=== PATIENT | female | born 1970 | race American Indian/Alaskan Native ===

== ENCOUNTER 2016-05-06 11:22 | Emergency (ER) | payer OTHER ==
[2016-05-06 11:26] VITALS: BP 103/48; PULSE 86; RESP 16; TEMP 98; O2SAT 100
[2016-05-06 11:27] VITALS: BMI 35.2
--- NOTE | 2016-05-06 11:53 | ED PDOC ---
HPI: Wound Care - HPI Time Seen by Provider: 05/06/16 11:32 Chief Complaint (Nursing): Suture/Staple Removal Chief Complaint (Provider): suture removal History Per: Patient Additional Complaint(s): 46 year old here for suture removal placed 04/29 after dog bite she states she has not taken many of the antibiotics only took about 3-4 tabs. (-) fever, drainage, pain, bleeding Past Medical History Reviewed: Historical Data, Nursing Documentation, Vital Signs Vital Signs: Last Vital Signs Temp 98.0 F 05/06/16 11:25 Pulse 86 05/06/16 11:25 Resp 16 05/06/16 11:25 BP 103/48 L 05/06/16 11:25 Pulse Ox 100 05/06/16 11:25 - Medical History PMH: Arthritis (Degenerative arthritis), Diabetes, HTN, Hypercholesterolemia - Surgical History Surgical History: (x 1) - Family History Family History: States: Unknown Family Hx - Immunization History Hx Tetanus Toxoid Vaccination: No Hx Influenza Vaccination: No Hx Pneumococcal Vaccination: No - Home Medications Home Medications: Ambulatory Orders Medication Instructions Recorded Amoxicillin/Clavulanate [Augmentin 1 tab PO BID #14 tab 04/29/16 875 MG-125 MG] Htn Pill 1 tab PO BID 04/29/16 Ibuprofen [Motrin] 600 mg PO Q6 #20 tab 04/29/16 metFORMIN [glucOPHAGE] 1 tab PO BID 04/29/16 - Allergies Allergies/Adverse Reactions: Allergies Allergy/AdvReac Type Severity Reaction Status Date / Time No Known Allergies Allergy Verified 05/06/16 11:30 Review of Systems ROS Statement: Except As Marked, All Systems Reviewed And Found Negative Constitutional: Negative for: Fever Physical Exam - Reviewed Nursing Documentation Reviewed: Yes Vital Signs Reviewed: Yes (r) - Physical Exam Appears: Positive for: Well, No Acute Distress Extremity: Positive for: Normal ROM, Capillary Refill (normal ), Other ([address] on the right lateral/posterior thigh, no bleeding, no drainage , no tenderness, no fluctuance, no erythema, appears well ). Negative for: Tenderness - ECG O2 Sat by Pulse Oximetry: 100 Pulse Ox Interpretation: Normal Medical Decision Making Medical Decision Makin46 year old here for suture removal placed 04/29 after dog bite - wound appears well with no signs of infection - wound appears closed - cleansed with betadine and 2 sutures easily removed. - 2 steri strips placed to continue healing - dressing placed the need for taking abx discussed as she is a diabetic, return information discussed. Disposition - Clinical Impression Clinical Impression: Visit for suture removal - Patient ED Disposition Is Patient to be Admitted: No Counseled Patient/Family Regarding: Studies Performed, Diagnosis, Need For Followup - Disposition Disposition: Routine/Home Disposition Time: 11:51 Condition: STABLE Additional Instructions: keep clean and dry take the antibiotics as prescribed return for pain, bleeding, fevers, drainage or any new concerns Instructions: Stitches Removal (ED), Steristrips (ED) Print Language: SYRIAC
== END 2016-05-06 12:06 | disposition home or self-care (01) ==
LOC: H.ER 11:22
DX: Z48.02 Encounter for removal of sutures (principal); E11.9 Type 2 diabetes mellitus without complications; Z79.84 Long term (current) use of oral hypoglycemic drugs; E78.00 Pure hypercholesterolemia, unspecified; I10 Essential (primary) hypertension

== ENCOUNTER 2016-07-28 14:35 | Emergency (ER) | payer OTHER ==
[2016-07-28 14:36] VITALS: BMI 35.2
[2016-07-28 14:37] VITALS: BP 125/78; PULSE 86; RESP 18; TEMP 99.2; O2SAT 100
[2016-07-28 15:43] LABS: BASO % 0.3 % (0.0-2.0); EOS # 0.1 K/uL (0.0-0.7); EOS % 0.6 % (0.0-4.0); HEMATOCRIT 39.5 % (34.0-47.0); LYMPH # 3.8 K/uL (1.0-4.3); LYMPH % 29.9 % (20.0-40.0); MEAN CORPUSCULAR HEMOGLOBIN 28.9 pg (27.0-31.0); MEAN CORPUSCULAR HGB CONC 32.2 g/dL (33.0-37.0); MONO # 1.6 K/uL (0.0-0.8); MONO % 12.7 % (0.0-10.0); NEUT # 7.1 K/uL (1.8-7.0); NEUT % 56.5 % (50.0-75.0); NRBC % 0.1 % (0.0-0.0); RED CELL DISTRIBUTION WIDTH 14.4 % (11.5-14.5); WHITE BLOOD COUNT 12.6 K/uL (4.8-10.8)
[2016-07-28 15:52] LABS: MEAN CELL VOLUME 89.7 fl (81.0-99.0)
[2016-07-28 15:56] LABS: ALB/GLOB RATIO 1.2 (1.0-2.1); ALKALINE PHOSPHATASE 77 U/L (38-126); ALT/SGPT 31 U/L (9-52); AST/SGOT 24 U/L (14-36); BILIRUBIN,TOTAL 0.4 mg/dl (0.2-1.3); BLOOD UREA NITROGEN 15 mg/dl (7-17); CARBON DIOXIDE 28 mmol/L (22-30); CHLORIDE 97 mmol/L (98-107); GFR AFRICAN-AMERICAN > 60; GLUCOSE,RANDOM 63 mg/dL (65-105); POTASSIUM 3.4 MMOL/L (3.6-5.0); SODIUM 137 mmol/l (132-148); TOTAL PROTEIN 8.3 G/DL (6.3-8.2)
[2016-07-28] MEDS ORDERED: Potassium Chloride 20 mEq ER Tab PO STA (16:00)
--- NOTE | 2016-07-28 16:04 | ED PDOC ---
Lower Extremity Pain/Injury Time Seen by Provider: 07/28/16 15:07 Chief Complaint (Nursing): Weakness/Neurological Deficit Chief Complaint (Provider): left foot pain History Per: Patient History/Exam Limitations: no limitations Onset/Duration Of Symptoms: Days (x 1.5 weeks ) Current Symptoms Are (Timing): Still Present Additional Complaint(s): Mariah Espinal is a 46 year old female, with a previous medical history of arthritis, diabetes and hypertension, who presents to the ED via EMS with complaints of atraumatic left foot pain associated with weakness ongoing for the past week and a half. Patient reports when EMS arrived her glucose level was 65. Patient denies any calf pain, shortness of breath, numbness, tingling, swelling or chest pain. PMD: none provided Past Medical History Reviewed: Historical Data, Nursing Documentation, Vital Signs Vital Signs: Last Vital Signs Temp 99.2 F 07/28/16 14:36 Pulse 86 07/28/16 14:36 Resp 18 07/28/16 14:36 BP 125/78 07/28/16 14:36 Pulse Ox 100 07/28/16 14:36 - Medical History PMH: Arthritis (Degenerative arthritis), Diabetes, HTN, Hypercholesterolemia - Surgical History Surgical History: (x 1) - Family History Family History: States: Unknown Family Hx - Immunization History Hx Tetanus Toxoid Vaccination: No Hx Influenza Vaccination: No Hx Pneumococcal Vaccination: No - Home Medications Home Medications: Ambulatory Orders Medication Instructions Recorded Amoxicillin/Clavulanate [Augmentin 1 tab PO BID #14 tab 04/29/16 875 MG-125 MG] Htn Pill 1 tab PO BID 04/29/16 Ibuprofen [Motrin] 600 mg PO Q6 #20 tab 04/29/16 metFORMIN [glucOPHAGE] 1 tab PO BID 04/29/16 Naproxen [Naprosyn] 500 mg PO BID PRN #15 tablet 07/28/16 Nitrofurantoin Macrocrystals 100 mg PO BID #13 cap 07/28/16 [Macrobid] - Allergies Allergies/Adverse Reactions: Allergies Allergy/AdvReac Type Severity Reaction Status Date / Time No Known Allergies Allergy Verified 07/28/16 14:49 Review of Systems ROS Statement: Except As Marked, All Systems Reviewed And Found Negative Cardiovascular: Negative for: Chest Pain Respiratory: Negative for: Shortness of Breath Musculoskeletal: Positive for: Foot Pain (left). Negative for: Leg Pain (calf pain ) Neurological: Positive for: Weakness (left foot). Negative for: Numbness Physical Exam - Reviewed Nursing Documentation Reviewed: Yes Vital Signs Reviewed: Yes - Physical Exam Appears: Positive for: Well, Non-toxic, No Acute Distress Head Exam: Positive for: ATRAUMATIC, NORMAL INSPECTION, NORMOCEPHALIC Cardiovascular/Chest: Positive for: Regular Rate, Rhythm Respiratory: Positive for: CNT, Normal Breath Sounds Pulses-Dorsalis Pedis (L): 2+ Extremity: Positive for: Normal ROM, Tenderness (anterior surface of the left foot), Capillary Refill (< 2 seconds). Negative for: Pedal Edema, Calf Tenderness, Deformity, Swelling Neurologic/Psych: Positive for: Alert, Oriented - Laboratory Results Result Diagrams: 07/28/16 15:32 07/28/16 15:32 - ECG O2 Sat by Pulse Oximetry: 100 (RA) Pulse Ox Interpretation: Normal Medical Decision Making Medical Decision Making: Initial Impression: Foot pain Initial Plan: * EKG * labs * urine * urine dipstick * potassium chloride 20 meq * accucheck * urinalysis * reevaluation Scribe Attestation: Documented by Asha Marie, acting as a scribe for Asha Solano MD. Provider Scribe Attestation: All medical record entries made by the Scribe were at my direction and personally dictated by me. I have reviewed the chart and agree that the record accurately reflects my personal performance of the history, physical exam, medical decision making, and the department course for this patient. I have also personally directed, reviewed, and agree with the discharge instructions and disposition. Disposition - Clinical Impression Clinical Impression: UTI (urinary tract infection), Foot pain - Disposition Disposition: Routine/Home Disposition Time: 17:48 Condition: STABLE Additional Instructions: FOLLOW-UP WITH YOUR PMD WITHIN 2 DAYS FOR REEVALUATION. Prescriptions: Naproxen [Naprosyn] 500 mg PO BID PRN #15 tablet PRN Reason: Pain, Moderate (4-7) Nitrofurantoin Macrocrystals [Macrobid] 100 mg PO BID #13 cap Instructions: Urinary Tract Infection in Women (ED), Arthralgia (ED)
[2016-07-28 16:26] LABS: RBC URINE 19 /hpf (0-3); URINE BACTERIA OCC (<OCC); URINE BILIRUBIN NEGATIVE (NEGATIVE); URINE COLOR YELLOW (YELLOW); URINE GLUCOSE (UA) NEG (Normal); URINE KETONE NEGATIVE (NEGATIVE); URINE LEUKOCYTE ESTERASE MOD Leu/uL (Negative); URINE PROTEIN 30 mg/dL (NEGATIVE); URINE UROBILINOGEN 0.2-1.0 mg/dL (0.2-1.0); WBC URINE 50 /hpf (0-5)
[2016-07-28 16:27] LABS: URINE BLOOD SMALL (NEGATIVE)
--- NOTE | 2016-07-28 16:48 | RAD ---
PROCEDURE: Left Foot Radiographs. HISTORY: Anterior foot pain COMPARISON: None. FINDINGS: BONES: Normal. No fracture. JOINTS: Normal. SOFT TISSUES: Normal. OTHER FINDINGS: Heel spur. Pes planus.. IMPRESSION: Heel spur. Pes planus..
[2016-07-28] MEDS ORDERED: Potassium Chloride 20 mEq ER Tab PO ONE (17:50)
--- NOTE | 2016-07-29 14:50 | CARD ---
APPROVED REPORT EKG Measurement Heart [id number] <Conclusion> Normal sinus rhythm Cannot rule out Anterior infarct, age undetermined Abnormal ECG
== END 2016-07-28 18:04 | disposition home or self-care (01) ==
LOC: H.ER 14:35
DX: N39.0 Urinary tract infection, site not specified (principal); M79.672 Pain in left foot

== ENCOUNTER 2016-09-27 11:49 | Emergency (ER) | payer OTHER ==
[2016-09-27 11:49] VITALS: BMI 35.2
[2016-09-27 11:54] VITALS: BP 131/83; PULSE 83; RESP 18; TEMP 98.7; O2SAT 99
--- NOTE | 2016-09-27 12:59 | ED PDOC ---
Lower Extremity Pain/Injury Time Seen by Provider: 09/27/16 12:13 Chief Complaint (Nursing): Lower Extremity Problem/Injury Chief Complaint (Provider): Lower Extremity Injury History Per: Patient History/Exam Limitations: no limitations Onset/Duration Of Symptoms: Hrs (x2 [employer]IDENT[employer] DIRECT[employer]) Current Symptoms Are (Timing): Still Present Additional Complaint(s): Mariah Espinal is a 46 year old female, with a past medical history of diabetes , and hypertension, who presents to the emergency department complaining left knee pain onset since 2 hours prior to arrival. Patient reports she slip and fell on her knee due to a water spill near a water fountain. She denies any further medical complaints. PMD: Brenda Sorenson - Knee Description Of Injury: Fell Past Medical History Reviewed: Historical Data, Nursing Documentation, Vital Signs Vital Signs: Last Vital Signs Temp 98.7 F 09/27/16 11:53 Pulse 83 09/27/16 11:53 Resp 18 09/27/16 11:53 BP 131/83 09/27/16 11:53 Pulse Ox 99 09/27/16 11:53 - Medical History PMH: Arthritis (Degenerative arthritis), Diabetes, HTN, Hypercholesterolemia - Surgical History Surgical History: (x 1) - Family History Family History: States: Unknown Family Hx - Immunization History Hx Tetanus Toxoid Vaccination: No Hx Influenza Vaccination: No Hx Pneumococcal Vaccination: No - Home Medications Home Medications: Ambulatory Orders Medication Instructions Recorded Amoxicillin/Clavulanate [Augmentin 1 tab PO BID #14 tab 04/29/16 875 MG-125 MG] Htn Pill 1 tab PO BID 04/29/16 Ibuprofen [Motrin] 600 mg PO Q6 #20 tab 04/29/16 metFORMIN [glucOPHAGE] 1 tab PO BID 04/29/16 Naproxen [Naprosyn] 500 mg PO BID PRN #15 tablet 07/28/16 Nitrofurantoin Macrocrystals 100 mg PO BID #13 cap 07/28/16 [Macrobid] Naproxen 500 mg PO Q12H PRN #20 ect 09/27/16 - Allergies Allergies/Adverse Reactions: Allergies Allergy/AdvReac Type Severity Reaction Status Date / Time No Known Allergies Allergy Verified 07/28/16 14:49 Review of Systems ROS Statement: Except As Marked, All Systems Reviewed And Found Negative Musculoskeletal: Positive for: Leg Pain (Left knee) Physical Exam - Reviewed Nursing Documentation Reviewed: Yes Vital Signs Reviewed: Yes - Physical Exam Appears: Positive for: Well, Non-toxic, No Acute Distress Head Exam: Positive for: ATRAUMATIC, NORMAL INSPECTION, NORMOCEPHALIC Skin: Positive for: Normal Color (No ecchymosis, no abrasion ), Warm, Dry Eye Exam: Positive for: Normal appearance ENT: Positive for: Normal ENT Inspection Neck: Positive for: Normal Respiratory: Negative for: Accessory Muscle Use, Respiratory Distress Pulses-Dorsalis Pedis (L): 2+ Pulses-Dorsalis Pedis (R): 2+ Pulses-Post. Tibialis (L): 2+ Pulses-Post. Tibialis (R): 2+ Extremity: Positive for: Normal ROM, Tenderness (Left patella). Negative for: Deformity, Swelling Neurologic/Psych: Positive for: Alert, Oriented - ECG O2 Sat by Pulse Oximetry: 99 (RA) Pulse Ox Interpretation: Normal Medical Decision Making Medical Decision Making: Initial Impression: Lower extremity injury Initial Plan: --Knee 3 views LT [RAD] --Knee 3 views RT [RAD] --Motrin Tab 600 mg PO --reevaluation Time Upon provider reevaluation patient is feeling better, is medically stable, and requires no further treatment in the ED at this time. Patient will be discharged with Rx for . There is agreement to discharge plan. Return if symptoms persist or worsen. Scribe Attestation: Documented by Gabriel Bolanos, acting as a scribe for Chey STREET. Provider Scribe Attestation: All medical record entries made by the Scribe were at my direction and personally dictated by me. I have reviewed the chart and agree that the record accurately reflects my personal performance of the history, physical exam, medical decision making, and the department course for this patient. I have also personally directed, reviewed, and agree with the discharge instructions and disposition. Disposition - Clinical Impression Clinical Impression: Knee injury - Disposition Referrals: Jerson Bowles III, MD [Staff Provider] - Disposition: Routine/Home Disposition Time: 13:05 Condition: GOOD Prescriptions: Naproxen 500 mg PO Q12H PRN #20 ect PRN Reason: Pain, Severe (8-10) Instructions: Knee Pain (ED) Forms: [employer] (Sinhala)
--- NOTE | 2016-09-27 15:12 | RAD ---
PROCEDURE: Left Knee Radiographs. HISTORY: Pain. COMPARISON: Prior left knee radiographs 10/03/2011. FINDINGS: BONES: Normal. No fracture or suspicious lytic or blastic change. . JOINTS: Limited medial femorotibial compartment narrowing is appreciated with the joint spaces otherwise unremarkable. JOINT EFFUSION: None. OTHER FINDINGS: None. IMPRESSION: Limited medial femorotibial compartment degenerative joint disease. No acute fracture or dislocation.
== END 2016-09-27 13:29 | disposition home or self-care (01) ==
LOC: H.ER 11:49
DX: S89.92XA Unspecified injury of left lower leg, initial encounter (principal); W19.XXXA Unspecified fall, initial encounter; Y92.89 Other specified places as the place of occurrence of the external cause

== ENCOUNTER 2016-11-16 23:10 | Emergency (ER) | payer OTHER ==
[2016-11-16 23:11] VITALS: BMI 35.2
[2016-11-16 23:16] VITALS: BP 119/70; PULSE 103; RESP 18; TEMP 98.7; O2SAT 100
--- NOTE | 2016-11-16 23:56 | ED PDOC ---
HPI: General Adult Time Seen by Provider: 11/16/16 23:20 Chief Complaint (Nursing): Upper Extremity Problem/Injury Chief Complaint (Provider): Dizziness History Per: Patient History/Exam Limitations: no limitations Onset/Duration Of Symptoms: Hrs (x 5) Current Symptoms Are (Timing): Still Present Additional Complaint(s): 46 y/o female with a history of diabetes, hypertension, and asthma, presents to the ED after having a dizzy spell at work accompanied by right shoulder pain for the past 5 hours. Patient denies loss of consciousness, and took no medication prior to arrival. PMD: Dr. Sorenson Past Medical History Reviewed: Historical Data, Nursing Documentation, Vital Signs Vital Signs: Last Vital Signs Temp 98.7 F 11/16/16 23:12 Pulse 103 H 11/16/16 23:12 Resp 18 11/16/16 23:12 BP 119/70 11/16/16 23:12 Pulse Ox 100 11/17/16 00:36 - Medical History PMH: Arthritis (Degenerative arthritis), Asthma, Diabetes, HTN, Hypercholesterolemia - Surgical History Surgical History: (x 1) - Family History Family History: States: Unknown Family Hx - Social History Current smoker - smoking cessation education provided: No Ex-Smoker (has not smoked in the last 12 months): No Alcohol: None Drugs: Denies - Immunization History Hx Tetanus Toxoid Vaccination: No Hx Influenza Vaccination: No Hx Pneumococcal Vaccination: No - Home Medications Home Medications: Ambulatory Orders Medication Instructions Recorded Amoxicillin/Clavulanate [Augmentin 1 tab PO BID #14 tab 04/29/16 875 MG-125 MG] Htn Pill 1 tab PO BID 04/29/16 Ibuprofen [Motrin] 600 mg PO Q6 #20 tab 04/29/16 metFORMIN [glucOPHAGE] 1 tab PO BID 04/29/16 Naproxen [Naprosyn] 500 mg PO BID PRN #15 tablet 07/28/16 Nitrofurantoin Macrocrystals 100 mg PO BID #13 cap 07/28/16 [Macrobid] Naproxen 500 mg PO Q12H PRN #20 ect 09/27/16 Ibuprofen [Motrin Tab] 600 mg PO Q6 PRN #12 tab 11/17/16 - Allergies Allergies/Adverse Reactions: Allergies Allergy/AdvReac Type Severity Reaction Status Date / Time No Known Allergies Allergy Verified 07/28/16 14:49 Review of Systems ROS Statement: Except As Marked, All Systems Reviewed And Found Negative Musculoskeletal: Positive for: Shoulder Pain (right) Neurological: Positive for: Dizziness Physical Exam - Reviewed Nursing Documentation Reviewed: Yes Vital Signs Reviewed: Yes - Physical Exam Appears: Positive for: Well, Non-toxic, No Acute Distress Head Exam: Positive for: ATRAUMATIC, NORMAL INSPECTION, NORMOCEPHALIC Skin: Positive for: Normal Color, Warm, Dry Eye Exam: Positive for: EOMI, Normal appearance, PERRL ENT: Positive for: Normal ENT Inspection Neck: Positive for: Normal, Painless ROM, Supple Cardiovascular/Chest: Positive for: Regular Rate, Rhythm. Negative for: Murmur Respiratory: Positive for: Normal Breath Sounds. Negative for: Wheezing, Respiratory Distress Gastrointestinal/Abdominal: Positive for: Normal Exam, Bowel Sounds, Soft. Negative for: Tenderness Extremity: Positive for: Normal ROM (pain with right upper extremity extension to 90 degrees), Tenderness (point tenderness over right scapular surface). Negative for: Deformity Neurologic/Psych: Positive for: Alert, Oriented - ECG O2 Sat by Pulse Oximetry: 100 (RA) Pulse Ox Interpretation: Normal Medical Decision Making Medical Decision Making: Time: 23:37 Initial Impression: 46 y/o female with shoulder pain and dizzy spell Initial Plan: --EKG --XR Shoulder --Toradol --Accucheck Time: 23:40 Clinical Impression: Shoulder strain and dizzy spell --XR normal --Patient is medically stable for discharge. Scribe Attestation: Documented by Danny Weiss, acting as a scribe for Dr. Florian Ceballos MD. Provider Scribe Attestation: All medical record entries made by the Scribe were at my direction and personally dictated by me. I have reviewed the chart and agree that the record accurately reflects my personal performance of the history, physical exam, medical decision making, and the department course for this patient. I have also personally directed, reviewed, and agree with the discharge instructions and disposition. Disposition - Clinical Impression Clinical Impression: Right shoulder strain, Dizziness - Patient ED Disposition Is Patient to be Admitted: No Counseled Patient/Family Regarding: Studies Performed, Diagnosis - Disposition Disposition: Routine/Home Disposition Time: 23:40 Condition: STABLE Prescriptions: Ibuprofen [Motrin Tab] 600 mg PO Q6 PRN #12 tab PRN Reason: shoulder pain Instructions: Shoulder Sprain (ED), Dizziness (ED) Forms: [employer] (Korean), [facility] ED School/Work Excuse - POA Present On Arrival: None
--- NOTE | 2016-11-17 11:44 | RAD ---
PROCEDURE: Radiographs of the Right Shoulder HISTORY: right shoulder COMPARISON: Right shoulder radiographs 02/21/2015. FINDINGS: BONES: Normal. No fracture. JOINTS: Normal. Glenohumeral and acromioclavicular joints preserved. No osteoarthritis. SOFT TISSUES: Normal. OTHER FINDINGS: None. IMPRESSION: Normal radiographs of the right shoulder. No significant interval change 02/21/2015.
--- NOTE | 2016-11-17 12:03 | CARD ---
APPROVED REPORT EKG Measurement Heart [id number] <Conclusion> Normal sinus rhythm with sinus arrhythmia Normal ECG
== END 2016-11-17 00:42 | disposition home or self-care (01) ==
LOC: H.ER 23:10
DX: M25.511 Pain in right shoulder (principal); E11.9 Type 2 diabetes mellitus without complications; I10 Essential (primary) hypertension; J45.909 Unspecified asthma, uncomplicated
CPT/HCPCS: 73030; 81025; 93005; 96372; 99282; J1885

== ENCOUNTER 2016-12-09 10:42 | Emergency (ER) | payer OTHER ==
[2016-12-09 10:42] VITALS: BMI 35.2
[2016-12-09 10:55] VITALS: O2SAT 98
--- NOTE | 2016-12-09 11:03 | ED PDOC ---
HPI: Dental Pain/Injury Time Seen by Provider: 12/09/16 10:50 Chief Complaint (Nursing): Dental Pain Chief Complaint (Provider): Dental Pain History Per: Patient History/Exam Limitations: no limitations Onset/Duration Of Symptoms: Days (x3 days) Current Symptoms Are (Timing): Still Present Additional Complaint(s): 46 y.o female presents to the emergency department with a complaint of an abscess in the mouth with pain to the left lower tooth and gums x3 days. States tooth is ready to come out and she cannot eat from that side but is able to swallow. Reports taking Motrin around 9:45 this morning. Patient called dentist but was unable to schedule an appointment. Denies nausea, vomiting, diarrhea, or experiencing tooth abscess in the past. No weakness, sore throat, neck pain , fever. No numbness, tingles, headache. PMD: Dr. Brenda Sorenson MD Past Medical History Reviewed: Historical Data, Nursing Documentation, Vital Signs Vital Signs: Last Vital Signs Temp 98 F 12/09/16 10:50 Pulse 89 12/09/16 10:50 Resp 18 12/09/16 10:50 BP 136/80 12/09/16 10:50 Pulse Ox 98 12/09/16 10:50 - Medical History PMH: Arthritis (Degenerative arthritis), Asthma, Diabetes, HTN, Hypercholesterolemia - Surgical History Surgical History: (x 1) - Family History Family History: States: Unknown Family Hx - Social History Current smoker - smoking cessation education provided: No Alcohol: None Drugs: Denies - Immunization History Hx Tetanus Toxoid Vaccination: No Hx Influenza Vaccination: No Hx Pneumococcal Vaccination: No - Home Medications Home Medications: Ambulatory Orders Medication Instructions Recorded Amoxicillin/Clavulanate [Augmentin 1 tab PO BID #14 tab 04/29/16 875 MG-125 MG] Htn Pill 1 tab PO BID 04/29/16 Ibuprofen [Motrin] 600 mg PO Q6 #20 tab 04/29/16 metFORMIN [glucOPHAGE] 1 tab PO BID 04/29/16 Naproxen [Naprosyn] 500 mg PO BID PRN #15 tablet 07/28/16 Nitrofurantoin Macrocrystals 100 mg PO BID #13 cap 07/28/16 [Macrobid] Naproxen 500 mg PO Q12H PRN #20 ect 09/27/16 Ibuprofen [Motrin Tab] 600 mg PO Q6 PRN #12 tab 11/17/16 Clindamycin [Cleocin] 300 mg PO QID 7 Days cap 12/09/16 Ibuprofen [Motrin] 600 mg PO TID 7 Days tab 12/09/16 - Allergies Allergies/Adverse Reactions: Allergies Allergy/AdvReac Type Severity Reaction Status Date / Time No Known Allergies Allergy Verified 12/09/16 10:50 Review of Systems Constitutional: Negative for: Weakness ENT: Positive for: Other (Lower left tooth and gum pain). Negative for: Nose Congestion, Mouth Swelling, Throat Pain Cardiovascular: Negative for: Chest Pain Respiratory: Negative for: Cough, Shortness of Breath Gastrointestinal: Negative for: Nausea, Vomiting, Diarrhea Musculoskeletal: Negative for: Neck Pain Neurological: Negative for: Weakness Physical Exam - Reviewed Nursing Documentation Reviewed: Yes Vital Signs Reviewed: Yes - Physical Exam Appears: Positive for: Non-toxic, No Acute Distress Head Exam: Positive for: ATRAUMATIC, NORMAL INSPECTION, NORMOCEPHALIC Skin: Positive for: Normal Color, Warm, Dry ENT: Positive for: Other (left lower incisor loose and tender; no erythema, dc, fluctuance around tooth/gum/lip.; mandible and face with no tenderness or swelling). Negative for: Normal ENT Inspection (No abscess noted, erythema, or fluctuance. No swelling to the lip or jaw. ), Nasal Congestion, Pharyngeal Erythema, Tonsillar Exudate Neck: Positive for: Normal, Painless ROM, Supple Cardiovascular/Chest: Positive for: Regular Rate, Rhythm. Negative for: Murmur Respiratory: Positive for: Normal Breath Sounds. Negative for: Accessory Muscle Use, Respiratory Distress Back: Positive for: Normal Inspection. Negative for: L CVA Tenderness, R CVA Tenderness Neurologic/Psych: Positive for: Alert, Oriented (x3) - ECG O2 Sat by Pulse Oximetry: 98 (RA) Pulse Ox Interpretation: Normal - Progress ED Course And Treament: 1122: Stable. AAOx3. Pt. will fu with pcp and dentist. She has her own dentist. Medical Decision Making Medical Decision Making: Time: 1058 Initial Impression: Lower left dental pain Initial Plan: --Tylenol 975 mg PO --Cleocin 300 mg PO --Reevaluation Time: 1110 Patient is medically stable, and requires no further treatment in the ED at this time. Patient will be discharged home with Rx for Cleocin 300 mg and Motrin 600 mg. Counseling was provided and all questions were answered regarding diagnosis and need for follow up with referred clinic. There is agreement to discharge plan. Return if symptoms persist or worsen. Clinical Impression: Dental Caries Scribe Attestation: Documented by Leola Joyce, acting as a scribe for Nikolas Abreu MD. Provider Scribe Attestation: All medical record entries made by the Scribe were at my direction and personally dictated by me. I have reviewed the chart and agree that the record accurately reflects my personal performance of the history, physical exam, medical decision making, and the department course for this patient. I have also personally directed, reviewed, and agree with the discharge instructions and disposition. Disposition - Clinical Impression Clinical Impression: Dental caries - Patient ED Disposition Is Patient to be Admitted: No Counseled Patient/Family Regarding: Diagnosis, Need For Followup, Rx Given - Disposition Referrals: [facility] [Outside] - 12/10/16 Disposition: Routine/Home Disposition Time: 11:10 Condition: STABLE Additional Instructions: Return if not better in 3 days. See your dentist without fail. 1. [address] - [address] Clinic Full Details We are proud to be one of the largest providers of high quality healthcare in the [facility] area. We offer a full range of medical and dental services for children, adults, and seniors including in-house specialists at our centersThis clinic is based on Sliding scale fees which are variable [facility] Clinic Full Details 2. [facility] [address], [place] - [address] Clinic Full Details [facility]. Fees: Medicaid, Self-PayWe provide dental services for children, adults and SeniorsThis clinic is based on Sliding scale fees which are variable prices for products, services, or taxes based on a customer's ability to pay. Such fees are thereby reduced for those who have [facility] Clinic Full Details 3. [facility] [address] [place] [phone] Clinic Full Details Services:Medical and DentalHours:Mon & Wed: 9AM 7PMTue & Marie-Sat: 9AM 5PM Clinic Full Details 4. [facility], Division of Oral Medicine (DS) [facility], Division of Oral Medicine (DS) [address] [place] [phone] Clinic Full Details [facility] Provides general dental care for people who cannot be treated in a normal dental office, including disabled, mentally retarded and frightened. When needed, treatment can be done under general anesthesia in [facility]. All treatment is by graduate dentists.Maximino email website Clinic Full Details Prescriptions: Clindamycin [Cleocin] 300 mg PO QID 7 Days cap Ibuprofen [Motrin] 600 mg PO TID 7 Days tab Instructions: Dental Caries (ED) Forms: [employer] (Guinean)
[2016-12-09 11:34] VITALS: BP 126/78; PULSE 78; RESP 19; TEMP 97.5
== END 2016-12-09 11:45 | disposition home or self-care (01) ==
LOC: H.ER 10:42
DX: K02.9 Dental caries, unspecified (principal)

== ENCOUNTER 2017-01-16 08:23 | Emergency (ER) | payer OTHER ==
[2017-01-16 08:23] VITALS: BMI 35.2
[2017-01-16 08:40] VITALS: RESP 22
--- NOTE | 2017-01-16 10:45 | ED PDOC ---
HPI: Back Time Seen by Provider: 01/16/17 09:12 Chief Complaint (Nursing): Back Pain Chief Complaint (Provider): left flank and hip pain History Per: Patient History/Exam Limitations: no limitations Onset/Duration Of Symptoms: Hrs (3), Sudden Onset Current Symptoms Are (Timing): Still Present Quality Of Discomfort: Sharp Severity: Moderate Previous Symptoms: None, Back Pain Associated Symptoms: None Exacerbating Factor(s): Turning, Movement, Sitting Additional Complaint(s): 47yo female hx DM and HTN presents c/o left flank and hip pain since this morning, worse w movement. Denies prior history of similar pain, denies dysuria , fever, vomiting or diarrhea. Past Medical History Reviewed: Historical Data, Nursing Documentation, Vital Signs Vital Signs: Last Vital Signs Temp 97.9 F 01/16/17 08:39 Pulse 105 H 01/16/17 08:39 Resp 22 01/16/17 08:39 BP 132/77 01/16/17 08:39 Pulse Ox 97 01/16/17 08:39 - Medical History PMH: Arthritis (Degenerative arthritis), Asthma, Diabetes, HTN, Hypercholesterolemia - Surgical History Surgical History: (x 1) - Family History Family History: States: Unknown Family Hx - Living Arrangements Living Arrangements: With Family - Immunization History Hx Tetanus Toxoid Vaccination: No Hx Influenza Vaccination: No Hx Pneumococcal Vaccination: No - Home Medications Home Medications: Ambulatory Orders Medication Instructions Recorded Amoxicillin/Clavulanate [Augmentin 1 tab PO BID #14 tab 04/29/16 875 MG-125 MG] Htn Pill 1 tab PO BID 04/29/16 Ibuprofen [Motrin] 600 mg PO Q6 #20 tab 04/29/16 metFORMIN [glucOPHAGE] 1 tab PO BID 04/29/16 Naproxen [Naprosyn] 500 mg PO BID PRN #15 tablet 07/28/16 Nitrofurantoin Macrocrystals 100 mg PO BID #13 cap 07/28/16 [Macrobid] Naproxen 500 mg PO Q12H PRN #20 ect 09/27/16 Ibuprofen [Motrin Tab] 600 mg PO Q6 PRN #12 tab 11/17/16 Clindamycin [Cleocin] 300 mg PO QID 7 Days cap 12/09/16 Ibuprofen [Motrin] 600 mg PO TID 7 Days tab 12/09/16 Ciprofloxacin [Cipro] 500 mg PO BID #14 tab 01/16/17 Ibuprofen [Motrin Tab] 600 mg PO Q6 PRN #15 tab 01/16/17 - Allergies Allergies/Adverse Reactions: Allergies Allergy/AdvReac Type Severity Reaction Status Date / Time No Known Allergies Allergy Verified 12/09/16 10:50 Review of Systems ROS Statement: Except As Marked, All Systems Reviewed And Found Negative Constitutional: Negative for: Fever, Chills Cardiovascular: Negative for: Chest Pain, Palpitations Respiratory: Negative for: Cough, Shortness of Breath Gastrointestinal: Positive for: Abdominal Pain, Other (L flank pain). Negative for: Nausea, Vomiting Genitourinary Female: Negative for: Dysuria, Hematuria Musculoskeletal: Positive for: Back Pain. Negative for: Neck Pain Skin: Negative for: Rash, Lesions, Jaundice Neurological: Negative for: Weakness, Numbness Psych: Negative for: Anxiety Physical Exam - Reviewed Nursing Documentation Reviewed: Yes Vital Signs Reviewed: Yes - Physical Exam Appears: Positive for: Well, Non-toxic, No Acute Distress Head Exam: Positive for: ATRAUMATIC, NORMAL INSPECTION, NORMOCEPHALIC Skin: Positive for: Normal Color, Warm, DRY Eye Exam: Positive for: EOMI, Normal appearance, PERRL ENT: Positive for: Normal ENT Inspection Neck: Positive for: Normal, Painless ROM Cardiovascular/Chest: Positive for: Regular Rate, Rhythm Respiratory: Positive for: CNT, Normal Breath Sounds Gastrointestinal/Abdominal: Positive for: Bowel Sounds, Soft. Negative for: Tenderness, Guarding Back: Positive for: L CVA Tenderness Extremity: Positive for: Tenderness (mild L hip tenderness). Negative for: Swelling Neurologic/Psych: Positive for: Alert, Oriented. Negative for: Motor/Sensory Deficits - Laboratory Results Result Diagrams: 01/16/17 11:55 01/16/17 11:55 - ECG O2 Sat by Pulse Oximetry: 97 Medical Decision Making Medical Decision Making: workup for back/flank pain initiated Bloodwork, UA and possible imaging if not improved labs reveal evidence of UTI CT imaging performed r/o pyelo or bony abnormality L hip. CT report reviewed and patient instructed on findings. DC from ED w Abx and followup PMD. Needs endocrine/PMD followup for adrenal imaging findings. Explained. Disposition - Clinical Impression Clinical Impression: UTI (urinary tract infection), Hip pain - Patient ED Disposition Is Patient to be Admitted: No Counseled Patient/Family Regarding: Studies Performed, Diagnosis, Need For Followup, Rx Given - Disposition Disposition: Routine/Home Disposition Time: 13:01 Condition: STABLE Additional Instructions: Take antibiotic and pain medication as directed. Return to ER for any worse or new symptoms/. Prescriptions: Ciprofloxacin [Cipro] 500 mg PO BID #14 tab Ibuprofen [Motrin Tab] 600 mg PO Q6 PRN #15 tab PRN Reason: Pain, Moderate (4-7) Instructions: Urinary Tract Infection in Women (DC), Hip Pain (ED) Forms: [employer] (Niuean)
[2017-01-16 10:50] LABS: RBC URINE 15 /hpf (0-3); URINE BACTERIA OCC (<OCC); URINE BILIRUBIN NEGATIVE (NEGATIVE); URINE BLOOD SMALL (NEGATIVE); URINE COLOR YELLOW (YELLOW); URINE GLUCOSE (UA) NEG (Normal); URINE KETONE NEGATIVE (NEGATIVE); URINE LEUKOCYTE ESTERASE LARGE Leu/uL (Negative); URINE PROTEIN 100 mg/dL (NEGATIVE); URINE UROBILINOGEN 0.2-1.0 mg/dL (0.2-1.0); WBC URINE 21 /hpf (0-5)
--- NOTE | 2017-01-16 10:54 | RAD ---
Indication: Left hip pain Left hip with pelvis Comparison: Left hip radiographs performed 02/21/15 Findings: Examination limited by habitus. Bilateral joint space narrowing. No acute displaced fracture or dislocation identified. Soft tissues appear unremarkable. No evidence of radiopaque foreign body. Pelvic calcifications, likely phleboliths. Impression: No acute displaced fracture or dislocation evident. If high clinical index of suspicion, suggest cross-sectional imaging for further evaluation. Otherwise, if symptoms persist or if there is continued clinical concern, x-ray follow-up in 7-10 days should be considered.
[2017-01-16 11:59] LABS: BASO # 0.1 K/uL (0.0-0.2); BASO % 0.9 % (0.0-2.0); EOS % 0.3 % (0.0-4.0); HEMATOCRIT 39.7 % (34.0-47.0); LYMPH # 3.8 K/uL (1.0-4.3); LYMPH % 29.5 % (20.0-40.0); MEAN CELL VOLUME 89.6 fl (81.0-99.0); MEAN CORPUSCULAR HEMOGLOBIN 29.1 pg (27.0-31.0); MEAN CORPUSCULAR HGB CONC 32.5 g/dL (33.0-37.0); MEAN PLATELET VOLUME 8.4 fl (7.2-11.7); MONO # 1.1 K/uL (0.0-0.8); MONO % 8.7 % (0.0-10.0); NEUT # 7.8 K/uL (1.8-7.0); NEUT % 60.6 % (50.0-75.0); NRBC % 0.1 % (0.0-0.0); RED CELL DISTRIBUTION WIDTH 14.8 % (11.5-14.5); WHITE BLOOD COUNT 12.9 K/uL (4.8-10.8)
[2017-01-16 12:09] LABS: ALB/GLOB RATIO 1.3 (1.0-2.1); ALKALINE PHOSPHATASE 82 U/L (38-126); ALT/SGPT 32 U/L (9-52); AST/SGOT 18 U/L (14-36); BILIRUBIN,TOTAL 0.3 mg/dl (0.2-1.3); BLOOD UREA NITROGEN 13 mg/dl (7-17); CALCIUM 9.4 mg/dL (8.4-10.2); CARBON DIOXIDE 31 mmol/L (22-30); CHLORIDE 99 mmol/L (98-107); GFR AFRICAN-AMERICAN > 60; GLUCOSE,RANDOM 109 mg/dL (65-105); POTASSIUM 3.8 MMOL/L (3.6-5.0); SODIUM 139 mmol/l (132-148); TOTAL PROTEIN 7.9 G/DL (6.3-8.2)
--- NOTE | 2017-01-16 12:45 | CT ---
PROCEDURE: CT Abdomen and Pelvis without Oral or IV contrast. HISTORY: L flank and L hip pain COMPARISON: None available. TECHNIQUE: Contiguous axial images of the abdomen and pelvis. No oral or IV contrast administered. Coronal and Sagittal reformats generated and reviewed. Radiation dose: Total exam DLP = 1046.05 mGy-cm. This CT exam was performed using one or more of the following dose reduction techniques: Automated exposure control, adjustment of the mA and/or kV according to patient size, and/or use of iterative reconstruction technique. FINDINGS: There is limited evaluation of the solid organs without the administration of IV contrast. LOWER THORAX: Mild bibasilar atelectasis. No visible pleural effusion or pneumothorax. LIVER: Unremarkable unenhanced appearance. GALLBLADDER AND BILE DUCTS: Unremarkable unenhanced appearance. PANCREAS: Unremarkable unenhanced appearance. SPLEEN: Unremarkable unenhanced appearance. ADRENALS: Bilateral nodular adrenal hypertrophy. KIDNEYS AND URETERS: No hydronephrosis or obstructing renal calculus. BLADDER: The urinary bladder appears unremarkable. REPRODUCTIVE: Uterus is present. APPENDIX: The appendix appears within normal limits of caliber. No secondary signs of acute appendicitis. BOWEL: The stomach is nondistended. Lack of oral contrast limits evaluation for bowel pathology. The bowel loops appear within normal limits of caliber without evidence of intestinal obstruction. PERITONEUM: No significant free fluid. No definite free air. LYMPH NODES: No bulky lymphadenopathy identified. VASCULATURE: No aortic aneurysm. BONES: Mild degenerative changes of the spine. OTHER FINDINGS: None. IMPRESSION: Bilateral nodular adrenal hypertrophy. Mild bibasilar atelectasis.
[2017-01-16 13:40] VITALS: BP 120/70; PULSE 78; TEMP 98.7
[2017-01-21 13:02] VITALS: O2SAT 97
== END 2017-01-16 13:42 | disposition home or self-care (01) ==
LOC: H.ER 08:23
DX: N39.0 Urinary tract infection, site not specified (principal); M25.552 Pain in left hip; E11.9 Type 2 diabetes mellitus without complications; E78.00 Pure hypercholesterolemia, unspecified; I10 Essential (primary) hypertension; J45.909 Unspecified asthma, uncomplicated; Z79.84 Long term (current) use of oral hypoglycemic drugs
CPT/HCPCS: 73502; 74176; 80053; 81003; 85025; 96372; 99283; J1885

== ENCOUNTER 2017-05-27 08:32 | Emergency (ER) | payer OTHER ==
[2017-05-27 08:32] VITALS: BMI 35.2
[2017-05-27 08:37] VITALS: RESP 18
[2017-05-27] MEDS ORDERED: Sodium Chloride 0.9% 1,000 ML IV STA (09:12)
[2017-05-27 09:57] LABS: BASO % 0.3 % (0.0-2.0); EOS # 0.1 K/uL (0.0-0.7); EOS % 0.4 % (0.0-4.0); HEMOGLOBIN 12.5 g/dL (12.0-16.0); LYMPH # 1.3 K/uL (1.0-4.3); LYMPH % 10.1 % (20.0-40.0); MEAN CELL VOLUME 88.5 fl (81.0-99.0); MEAN CORPUSCULAR HEMOGLOBIN 29.4 pg (27.0-31.0); MEAN CORPUSCULAR HGB CONC 33.2 g/dL (33.0-37.0); MEAN PLATELET VOLUME 8.5 fl (7.2-11.7); MONO # 0.8 K/uL (0.0-0.8); MONO % 6.3 % (0.0-10.0); NEUT # 10.3 K/uL (1.8-7.0); NEUT % 82.9 % (50.0-75.0); NRBC % 0.1 % (0.0-0.0); RBC 4.26 Mil/uL (3.80-5.20); RED CELL DISTRIBUTION WIDTH 14.9 % (11.5-14.5); WHITE BLOOD COUNT 12.4 K/uL (4.8-10.8)
--- NOTE | 2017-05-27 09:58 | ED PDOC ---
HPI:Nausea, Vomiting, Diarrhea Time Seen by Provider: 05/27/17 09:07 Chief Complaint (Nursing): GI Problem Chief Complaint (Provider): GI Problem History Per: Patient History/Exam Limitations: no limitations Onset/Duration Of Symptoms: Sudden Onset Current Symptoms Are (Timing): Still Present Additional Complaint(s): 47 year old female with medical history of HLD, HTN and DM, presents to the emergency department with a complaint of watery diarrhea and 3 episodes of nonbloody, nonbilious vomiting ongoing since this morning. Patient also reported associated bodyaches, periumbilical cramping, malaise, chills and decreased appetite and fluid intake. She denied any recent travel or use of antibiotics, with note that her son recently had a "stomach bug". PMD: Brenda Sorenson MD Past Medical History Reviewed: Historical Data, Nursing Documentation, Vital Signs Vital Signs: Last Vital Signs Temp 100.5 F H 05/27/17 08:35 Pulse 123 H 05/27/17 08:35 Resp 18 05/27/17 08:35 BP 113/77 05/27/17 08:35 Pulse Ox 96 05/27/17 08:35 - Medical History PMH: Arthritis (Degenerative arthritis), Diabetes, HTN, Hypercholesterolemia Denies: Asthma (denies) - Surgical History Surgical History: (x 1) - Family History Family History: States: Unknown Family Hx - Social History Current smoker - smoking cessation education provided: No Ex-Smoker (has not smoked in the last 12 months): No Alcohol: None Drugs: Denies - Immunization History Hx Tetanus Toxoid Vaccination: No Hx Influenza Vaccination: No Hx Pneumococcal Vaccination: No - Home Medications Home Medications: Ambulatory Orders Medication Instructions Recorded Amoxicillin/Clavulanate [Augmentin 1 tab PO BID #14 tab 04/29/16 875 MG-125 MG] Htn Pill 1 tab PO BID 04/29/16 Ibuprofen [Motrin] 600 mg PO Q6 #20 tab 04/29/16 metFORMIN [glucOPHAGE] 1 tab PO BID 04/29/16 Naproxen [Naprosyn] 500 mg PO BID PRN #15 tablet 07/28/16 Nitrofurantoin Macrocrystals 100 mg PO BID #13 cap 07/28/16 [Macrobid] Naproxen 500 mg PO Q12H PRN #20 ect 09/27/16 Ibuprofen [Motrin Tab] 600 mg PO Q6 PRN #12 tab 11/17/16 Clindamycin [Cleocin] 300 mg PO QID 7 Days cap 12/09/16 Ibuprofen [Motrin] 600 mg PO TID 7 Days tab 12/09/16 Ciprofloxacin [Cipro] 500 mg PO BID #14 tab 01/16/17 Ibuprofen [Motrin Tab] 600 mg PO Q6 PRN #15 tab 01/16/17 Ondansetron ODT [Zofran ODT] 4 mg PO Q8 PRN #12 odt 05/27/17 - Allergies Allergies/Adverse Reactions: Allergies Allergy/AdvReac Type Severity Reaction Status Date / Time No Known Allergies Allergy Verified 05/27/17 08:35 Review of Systems ROS Statement: Except As Marked, All Systems Reviewed And Found Negative Constitutional: Positive for: Chills, Malaise, Other (bodyaches) Gastrointestinal: Positive for: Vomiting (NBNB x3), Abdominal Pain ( periumbilical cramping), Diarrhea (watery), Other (decreased appetite and fluid intake) Physical Exam - Reviewed Nursing Documentation Reviewed: Yes Vital Signs Reviewed: Yes - Physical Exam Appears: Positive for: Non-toxic, No Acute Distress Eye Exam: Positive for: EOMI, Normal appearance, PERRL ENT: Positive for: Normal ENT Inspection, Pharynx Is (within normal limits), TM Is/Are (clear bilaterally). Negative for: Pharyngeal Erythema, Tonsillar Exudate Neck: Positive for: Normal, Supple Cardiovascular/Chest: Positive for: Chest Non Tender, Tachycardia (with regular rhythm) Respiratory: Positive for: Normal Breath Sounds. Negative for: Decreased Breath Sounds, Wheezing, Respiratory Distress Gastrointestinal/Abdominal: Positive for: Normal Exam, Soft. Negative for: Tenderness Back: Positive for: Normal Inspection. Negative for: L CVA Tenderness, R CVA Tenderness Extremity: Positive for: Normal ROM (upper/lower) Neurologic/Psych: Positive for: Alert, Oriented - Laboratory Results Result Diagrams: 05/27/17 09:27 05/27/17 09:27 - ECG O2 Sat by Pulse Oximetry: 96 (RA) Pulse Ox Interpretation: Normal Medical Decision Making Medical Decision Making: Initial Impression: Vomiting and diarrhea with flu-like symptoms Differential Diagnosis: Gastroenteritis; Pancreatitis; Influenza; Acute Cholecystitis; Colitis Initial Plan: * VBG * CMP * Lipase * Urine dipstick * CBC * Bentyl 10mg PO * NS 1,000ml IV per 1,000mls/hr * Tylenol 650mg PO * Zofran 8mg PO * Blood culture * Accucheck * Influenza A B Time: 1030 --Negative for flu. Time: 1339 --Upon provider reevaluation, patient is feeling better, medically stable and requires no further treatment in the ED at this time. Patient will be discharged home with Rx for Zofran 4mg. Counseling was provided and all questions were answered regarding diagnosis and need for follow up with [facility]. There is agreement to discharge plan. Return if symptoms persist or worsen. Clinical Impression: Vomiting and diarrhea Scribe Attestation: Documented by Michelle Camargo, acting as a scribe for Sera Gates MD. Provider Scribe Attestation: All medical record entries made by the Scribe were at my direction and personally dictated by me. I have reviewed the chart and agree that the record accurately reflects my personal performance of the history, physical exam, medical decision making, and the department course for this patient. I have also personally directed, reviewed, and agree with the discharge instructions and disposition. Disposition - Clinical Impression Clinical Impression: Vomiting and diarrhea - Patient ED Disposition Is Patient to be Admitted: No Counseled Patient/Family Regarding: Studies Performed, Diagnosis, Need For Followup, Rx Given - Disposition Referrals: [facility] [Outside] Disposition: Routine/Home Disposition Time: 13:39 Condition: GOOD Additional Instructions: Drink plenty of fluids. Follow up with your PCP in 2-3 days. Return for worsening. Prescriptions: Ondansetron ODT [Zofran ODT] 4 mg PO Q8 PRN #12 odt PRN Reason: Nausea/Vomiting Instructions: Viral Gastroenteritis
[2017-05-27 10:01] LABS: VENOUS BLOOD GAS BASE EXCESS 5.5 mmol/L (0.0-2.0); VENOUS BLOOD GAS PCO2 51 mmHg (40-60); VENOUS BLOOD GAS PO2 28 mm/Hg (30-55)
[2017-05-27 10:03] LABS: ALB/GLOB RATIO 1.1 (1.0-2.1); ALBUMIN 4.2 g/dL (3.5-5.0); ALT/SGPT 32 U/L (9-52); AST/SGOT 27 U/L (14-36); BLOOD UREA NITROGEN 18 mg/dl (7-17); CALCIUM 9.5 mg/dL (8.4-10.2); GFR AFRICAN-AMERICAN > 60; GFR NON-AFRICAN AMERICAN > 60; LIPASE 373 U/L (23-300)
[2017-05-27 13:50] VITALS: BP 110/55; PULSE 102; TEMP 98.4; O2SAT 98
== END 2017-05-27 13:55 | disposition home or self-care (01) ==
LOC: H.ER 08:32
DX: R11.10 Vomiting, unspecified (principal); R19.7 Diarrhea, unspecified; E11.9 Type 2 diabetes mellitus without complications; Z79.84 Long term (current) use of oral hypoglycemic drugs; E78.00 Pure hypercholesterolemia, unspecified; I10 Essential (primary) hypertension
CPT/HCPCS: 80053; 81025; 82803; 82948; 83690; 85025; 87040; 87804; 96361; 96374; 99285; J1885; J7040

== ENCOUNTER 2017-06-24 10:02 | Emergency (ER) | payer OTHER ==
[2017-06-24 10:02] VITALS: BMI 35.2
[2017-06-24 10:27] VITALS: BP 119/79; PULSE 86; RESP 18; TEMP 98.9; O2SAT 99
--- NOTE | 2017-06-24 10:59 | ED PDOC ---
Lower Extremity Pain/Injury Time Seen by Provider: 06/24/17 10:37 Chief Complaint (Nursing): Lower Extremity Problem/Injury Chief Complaint (Provider): right foot injury History Per: Patient (47 y/o female here with right foot injury that occurred when she struck foot against air conditioner 1 week ago and then ago yesterday. States she has been limping on foot and has difficulty putting on shoe due to pain. Denies any prior injury to foot. Did not take any medication for pain.) Past Medical History Reviewed: Historical Data, Nursing Documentation, Vital Signs Vital Signs: Last Vital Signs Temp 98.9 F 06/24/17 10:24 Pulse 86 06/24/17 10:24 Resp 18 06/24/17 10:24 BP 119/79 06/24/17 10:24 Pulse Ox 99 06/24/17 10:24 - Medical History PMH: Arthritis (Degenerative arthritis), Diabetes, HTN, Hypercholesterolemia Denies: Asthma (denies) - Surgical History Surgical History: (x 1) - Family History Family History: States: Unknown Family Hx - Immunization History Hx Tetanus Toxoid Vaccination: No Hx Influenza Vaccination: No Hx Pneumococcal Vaccination: No - Home Medications Home Medications: Ambulatory Orders Medication Instructions Recorded Amoxicillin/Clavulanate [Augmentin 1 tab PO BID #14 tab 04/29/16 875 MG-125 MG] Htn Pill 1 tab PO BID 04/29/16 Ibuprofen [Motrin] 600 mg PO Q6 #20 tab 04/29/16 metFORMIN [glucOPHAGE] 1 tab PO BID 04/29/16 Naproxen [Naprosyn] 500 mg PO BID PRN #15 tablet 07/28/16 Nitrofurantoin Macrocrystals 100 mg PO BID #13 cap 07/28/16 [Macrobid] Naproxen 500 mg PO Q12H PRN #20 ect 09/27/16 Ibuprofen [Motrin Tab] 600 mg PO Q6 PRN #12 tab 11/17/16 Clindamycin [Cleocin] 300 mg PO QID 7 Days cap 12/09/16 Ibuprofen [Motrin] 600 mg PO TID 7 Days tab 12/09/16 Ciprofloxacin [Cipro] 500 mg PO BID #14 tab 01/16/17 Ibuprofen [Motrin Tab] 600 mg PO Q6 PRN #15 tab 01/16/17 Ondansetron ODT [Zofran ODT] 4 mg PO Q8 PRN #12 odt 05/27/17 Ibuprofen [Motrin] 600 mg PO Q8 PRN #21 tab 06/24/17 - Allergies Allergies/Adverse Reactions: Allergies Allergy/AdvReac Type Severity Reaction Status Date / Time No Known Allergies Allergy Verified 05/27/17 08:35 Review of Systems ROS Statement: Except As Marked, All Systems Reviewed And Found Negative Musculoskeletal: Positive for: Foot Pain Physical Exam - Reviewed Nursing Documentation Reviewed: Yes Vital Signs Reviewed: Yes - Physical Exam Appears: Positive for: Well, Non-toxic, No Acute Distress Head Exam: Positive for: ATRAUMATIC, NORMAL INSPECTION, NORMOCEPHALIC Skin: Positive for: Normal Color, Warm, DRY Eye Exam: Positive for: EOMI, Normal appearance, PERRL ENT: Positive for: Normal ENT Inspection Neck: Positive for: Normal, Painless ROM Cardiovascular/Chest: Positive for: Regular Rate, Rhythm Respiratory: Positive for: CNT, Normal Breath Sounds Gastrointestinal/Abdominal: Positive for: Normal Exam, Soft Back: Positive for: Normal Inspection Extremity: Positive for: Normal ROM, Tenderness, Swelling (dorsum of foot. Nontender ankle) Neurologic/Psych: Positive for: Alert, Oriented - ECG O2 Sat by Pulse Oximetry: 99 - Progress ED Course And Treament: Motrin 600 mg x 1 dose xry of foot left: IMPRESSION: Nondisplaced fracture proximal phalanx right 4th digit with old healed fracture proximal phalanx right 5th digit identified in the interval as well. Degenerative changes including but not limited to a gross hallux valgus deformity. d/w podiatry resident who has reviewed films. Patient to be placed in surgical shoe and f/u with podiatry clinic. We will buddytape toes as well. Disposition - Clinical Impression Clinical Impression: Fracture of fourth toe, right, closed - Patient ED Disposition Is Patient to be Admitted: No - Disposition Referrals: Podiatry Clinic [Outside] Disposition: Routine/Home Disposition Time: 11:34 Condition: FAIR Prescriptions: Ibuprofen [Motrin] 600 mg PO Q8 PRN #21 tab PRN Reason: Pain, Moderate (4-7) Instructions: Toe Fracture (DC) Forms: [employer] (Portuguese), [facility] ED School/Work Excuse
--- NOTE | 2017-06-24 11:21 | RAD ---
PROCEDURE: Right Foot Radiographs. HISTORY: foot injury COMPARISON: Right foot radiographs 09/26/2010. FINDINGS: BONES: An acute spiral fracture of the proximal phalanx right 4th digit is identified without distraction or dislocation related. An old healed fracture of the right 5th digit is appreciated proximal phalanx. JOINTS: Degenerative changes seen throughout the interphalangeal joints mildly, manifest by articular cortical sclerosis. Prominent right hallux valgus deformity identified. SOFT TISSUES: Normal. OTHER FINDINGS: None. IMPRESSION: Nondisplaced fracture proximal phalanx right 4th digit with old healed fracture proximal phalanx right 5th digit identified in the interval as well. Degenerative changes including but not limited to a gross hallux valgus deformity.
== END 2017-06-24 11:45 | disposition home or self-care (01) ==
LOC: H.ER 10:02
DX: S92.514A Nondisplaced fracture of proximal phalanx of right lesser toe(s), initial encounter for closed fracture (principal); W22.09XA Striking against other stationary object, initial encounter; E11.9 Type 2 diabetes mellitus without complications; E78.00 Pure hypercholesterolemia, unspecified; I10 Essential (primary) hypertension; Z79.84 Long term (current) use of oral hypoglycemic drugs

== ENCOUNTER 2017-07-08 10:13 | Emergency (ER) | payer OTHER ==
[2017-07-08 10:13] VITALS: BMI 35.2
--- NOTE | 2017-07-08 11:17 | ED PDOC ---
Lower Extremity Pain/Injury Time Seen by Provider: 07/08/17 10:32 Chief Complaint (Nursing): Lower Extremity Problem/Injury Chief Complaint (Provider): Lower Extremity Problem/Injury History Per: Patient History/Exam Limitations: no limitations Onset/Duration Of Symptoms: Days (x 2) Current Symptoms Are (Timing): Still Present Additional Complaint(s): 47 year old female presents to the ED complaining fo hip pain for the last 2 days. Pain worsens when patient lifts her legs. She reports taking one Motrin without relief. Patient denies trauma, paresthesias, weakness and tingling. PMD: Dr. Brenda Sorenson Past Medical History Reviewed: Historical Data, Nursing Documentation, Vital Signs Vital Signs: Last Vital Signs Temp 98.6 F 07/08/17 10:19 Pulse 88 07/08/17 10:19 Resp 17 07/08/17 10:19 BP 105/73 07/08/17 10:19 Pulse Ox 97 07/08/17 10:19 - Medical History PMH: Arthritis (Degenerative arthritis), Diabetes, HTN, Hypercholesterolemia Denies: Asthma (denies) - Surgical History Surgical History: (x 1) - Family History Family History: States: Unknown Family Hx - Immunization History Hx Tetanus Toxoid Vaccination: No Hx Influenza Vaccination: No Hx Pneumococcal Vaccination: No - Home Medications Home Medications: Ambulatory Orders Medication Instructions Recorded Amoxicillin/Clavulanate [Augmentin 1 tab PO BID #14 tab 04/29/16 875 MG-125 MG] Htn Pill 1 tab PO BID 04/29/16 Ibuprofen [Motrin] 600 mg PO Q6 #20 tab 04/29/16 metFORMIN [glucOPHAGE] 1 tab PO BID 04/29/16 Naproxen [Naprosyn] 500 mg PO BID PRN #15 tablet 07/28/16 Nitrofurantoin Macrocrystals 100 mg PO BID #13 cap 07/28/16 [Macrobid] Naproxen 500 mg PO Q12H PRN #20 ect 09/27/16 Ibuprofen [Motrin Tab] 600 mg PO Q6 PRN #12 tab 11/17/16 Clindamycin [Cleocin] 300 mg PO QID 7 Days cap 12/09/16 Ibuprofen [Motrin] 600 mg PO TID 7 Days tab 12/09/16 Ciprofloxacin [Cipro] 500 mg PO BID #14 tab 01/16/17 Ibuprofen [Motrin Tab] 600 mg PO Q6 PRN #15 tab 01/16/17 Ondansetron ODT [Zofran ODT] 4 mg PO Q8 PRN #12 odt 05/27/17 Ibuprofen [Motrin] 600 mg PO Q8 PRN #21 tab 06/24/17 Cyclobenzaprine [Cyclobenzaprine 10 mg PO TID PRN #15 tab 07/08/17 HCl] Naproxen [Naprosyn] 500 mg PO BID PRN #15 tablet 07/08/17 - Allergies Allergies/Adverse Reactions: Allergies Allergy/AdvReac Type Severity Reaction Status Date / Time No Known Allergies Allergy Verified 07/08/17 10:40 Review of Systems ROS Statement: Except As Marked, All Systems Reviewed And Found Negative Musculoskeletal: Positive for: Other (hip pain) Physical Exam - Reviewed Nursing Documentation Reviewed: Yes Vital Signs Reviewed: Yes - Physical Exam Appears: Positive for: Non-toxic, No Acute Distress Head Exam: Positive for: ATRAUMATIC, NORMOCEPHALIC Skin: Positive for: Normal Color, Warm, Dry Eye Exam: Positive for: EOMI, Normal appearance, PERRL Neck: Positive for: Normal, Painless ROM, Supple Cardiovascular/Chest: Positive for: Regular Rate, Rhythm Respiratory: Positive for: CNT, Normal Breath Sounds Extremity: Positive for: Tenderness (to left lateral hip area). Negative for: Pedal Edema (or pitting), Calf Tenderness, Other (erythema and induration) Neurologic/Psych: Positive for: Alert, Oriented (x 3) - ECG O2 Sat by Pulse Oximetry: 97 (RA) Pulse Ox Interpretation: Normal Medical Decision Making Medical Decision Making: Time: 11:01 Initial Plan: --Toradol 30 mg IM --Left hip x ray --Lower extremity duplex US US FINDINGS: Left lower extremity: Normal flow, augmentation and compressibility were noted. No evidence of deep vein thrombosis. IMPRESSION: Negative study Hip x-ray FINDINGS: BONES: Normal. No fracture. JOINTS: Normal. SOFT TISSUES: Normal. OTHER FINDINGS: None. IMPRESSION: No significant or acute findings to account for/ related to the clinical presentation. Scribe Attestation: Documented by Gifty Zaragoza, acting as a scribe for Asha Solano MD Provider Scribe Attestation: All medical record entries made by the Scribe were at my direction and personally dictated by me. I have reviewed the chart and agree that the record accurately reflects my personal performance of the history, physical exam, medical decision making, and the department course for this patient. I have also personally directed, reviewed, and agree with the discharge instructions and disposition. Disposition - Clinical Impression Clinical Impression: Hip pain - Disposition Referrals: Brenda Sorenson MD [Family Provider] - Disposition: Routine/Home Disposition Time: 13:02 Condition: IMPROVED Prescriptions: Cyclobenzaprine [Cyclobenzaprine HCl] 10 mg PO TID PRN #15 tab PRN Reason: Pain Naproxen [Naprosyn] 500 mg PO BID PRN #15 tablet PRN Reason: Pain, Moderate (4-7) Instructions: Hip Pain Forms: [employer] (Haitian)
--- NOTE | 2017-07-08 12:05 | RAD ---
PROCEDURE: Left Hip X-ray Radiographs. HISTORY: Pain. No history of recent/ related trauma provided COMPARISON: None. FINDINGS: BONES: Normal. No fracture. JOINTS: Normal. SOFT TISSUES: Normal. OTHER FINDINGS: None. IMPRESSION: No significant or acute findings to account for/ related to the clinical presentation.
--- NOTE | 2017-07-08 12:05 | US ---
PROCEDURE: Left lower extremity duplex venous sonography HISTORY: L leg pain COMPARISON: None available. TECHNIQUE: Real-time ultrasound scan of the veins with color flow, spectral waveform analysis and compression FINDINGS: Left lower extremity: Normal flow, augmentation and compressibility were noted. No evidence of deep vein thrombosis. IMPRESSION: Negative study
[2017-07-08 13:30] VITALS: BP 135/80; PULSE 81; RESP 16; TEMP 98.1
[2017-07-14 17:03] VITALS: O2SAT 97
== END 2017-07-08 13:29 | disposition home or self-care (01) ==
LOC: H.ER 10:13
DX: M25.552 Pain in left hip (principal); E11.9 Type 2 diabetes mellitus without complications; I10 Essential (primary) hypertension; Z79.84 Long term (current) use of oral hypoglycemic drugs; E78.00 Pure hypercholesterolemia, unspecified
CPT/HCPCS: 73502; 81025; 82948; 93971; 96372; 99283; J1885

== ENCOUNTER 2017-10-31 09:51 | Emergency (ER) | payer OTHER ==
[2017-10-31 09:51] VITALS: BMI 35.2
[2017-10-31 10:07] VITALS: RESP 18; O2SAT 98
[2017-10-31] MEDS ORDERED: Sodium Chloride 0.9% 1,000 ML IV STA ×2 (11:31→12:25)
[2017-10-31 11:51] LABS: BASO # 0.1 K/uL (0.0-0.2); BASO % 0.7 % (0.0-2.0); EOS % 0.3 % (0.0-4.0); LYMPH # 3.3 K/uL (1.0-4.3); LYMPH % 29.5 % (20.0-40.0); MEAN CELL VOLUME 88.2 fl (81.0-99.0); MEAN CORPUSCULAR HEMOGLOBIN 29.1 pg (27.0-31.0); MEAN PLATELET VOLUME 8.6 fl (7.2-11.7); MONO % 9.2 % (0.0-10.0); NEUT # 6.8 K/uL (1.8-7.0); NEUT % 60.3 % (50.0-75.0); NRBC % 0.1 % (0.0-0.0); RBC 4.46 Mil/uL (3.80-5.20); RED CELL DISTRIBUTION WIDTH 15.1 % (11.5-14.5); WHITE BLOOD COUNT 11.2 K/uL (4.8-10.8)
[2017-10-31 12:05] LABS: ALB/GLOB RATIO 1.3 (1.0-2.1); ALBUMIN 4.5 g/dL (3.5-5.0); ALT/SGPT 23 U/L (9-52); AST/SGOT 20 U/L (14-36); BLOOD UREA NITROGEN 14 mg/dl (7-17); GFR NON-AFRICAN AMERICAN > 60; LIPASE 176 U/L (23-300)
[2017-10-31] MEDS ORDERED: Iohexol 300 100 ML IJ ONE (13:10)
[2017-10-31] MEDS ORDERED: Sodium Chloride 0.9% 100 ML ONE (13:10)
--- NOTE | 2017-10-31 13:16 | ED PDOC ---
HPI: Abdomen Time Seen by Provider: 10/31/17 10:46 Chief Complaint (Nursing): Abdominal Pain History Per: Patient Additional Complaint(s): Pt. states yesterday she developed crampy epigastric abd pain associated with 2 episodes of non-bloody vomiting and 3 episodes of non-bloody watery diarrhea. Reports the last food she consumed was chicken teriyaki and symptoms developed 5 -6 hours after. Pain has improved. Denies melena, hematochezia, BRBPR, hematemesis, BRBPR, weakness, sick contacts, recent travel. Past Medical History Reviewed: Historical Data, Nursing Documentation, Vital Signs Vital Signs: Last Vital Signs Temp 98.3 F 10/31/17 14:50 Pulse 78 10/31/17 14:50 Resp 18 10/31/17 14:50 BP 143/65 10/31/17 14:50 Pulse Ox 98 10/31/17 14:50 - Medical History PMH: Arthritis (Degenerative arthritis), Diabetes, HTN, Hypercholesterolemia Denies: Asthma (denies) - Surgical History Surgical History: (x 1) - Family History Family History: States: No Known Family Hx - Immunization History Hx Tetanus Toxoid Vaccination: No Hx Influenza Vaccination: No Hx Pneumococcal Vaccination: No - Home Medications Home Medications: Ambulatory Orders Medication Instructions Recorded Amoxicillin/Clavulanate [Augmentin 1 tab PO BID #14 tab 04/29/16 875 MG-125 MG] Htn Pill 1 tab PO BID 04/29/16 Ibuprofen [Motrin] 600 mg PO Q6 #20 tab 04/29/16 metFORMIN [glucOPHAGE] 1 tab PO BID 04/29/16 Naproxen [Naprosyn] 500 mg PO BID PRN #15 tablet 07/28/16 Nitrofurantoin Macrocrystals 100 mg PO BID #13 cap 07/28/16 [Macrobid] Naproxen 500 mg PO Q12H PRN #20 ect 09/27/16 Ibuprofen [Motrin Tab] 600 mg PO Q6 PRN #12 tab 11/17/16 Clindamycin [Cleocin] 300 mg PO QID 7 Days cap 12/09/16 Ibuprofen [Motrin] 600 mg PO TID 7 Days tab 12/09/16 Ciprofloxacin [Cipro] 500 mg PO BID #14 tab 01/16/17 Ibuprofen [Motrin Tab] 600 mg PO Q6 PRN #15 tab 01/16/17 Ondansetron ODT [Zofran ODT] 4 mg PO Q8 PRN #12 odt 05/27/17 Ibuprofen [Motrin] 600 mg PO Q8 PRN #21 tab 06/24/17 Cyclobenzaprine [Cyclobenzaprine 10 mg PO TID PRN #15 tab 07/08/17 HCl] Naproxen [Naprosyn] 500 mg PO BID PRN #15 tablet 07/08/17 Ciprofloxacin [Cipro] 500 mg PO BID #14 tab 10/31/17 Dicyclomine [Bentyl] 20 mg PO TID PRN #15 tab 10/31/17 Ondansetron ODT [Zofran ODT] 4 mg PO TID #20 odt 10/31/17 metroNIDAZOLE [Flagyl] 500 mg PO TID #21 tab 10/31/17 - Allergies Allergies/Adverse Reactions: Allergies Allergy/AdvReac Type Severity Reaction Status Date / Time No Known Allergies Allergy Verified 07/08/17 10:40 Review of Systems ROS Statement: Except As Marked, All Systems Reviewed And Found Negative Gastrointestinal: Positive for: Nausea, Vomiting, Abdominal Pain, Diarrhea Physical Exam - Physical Exam Appears: Positive for: Well, Non-toxic, No Acute Distress Skin: Positive for: Normal Color, Warm. Negative for: Rash Eye Exam: Positive for: Normal appearance. Negative for: Scleral icterus Cardiovascular/Chest: Positive for: Regular Rate, Rhythm Respiratory: Positive for: Normal Breath Sounds. Negative for: Respiratory Distress Gastrointestinal/Abdominal: Positive for: Normal Exam, Bowel Sounds, Soft. Negative for: Tenderness Back: Positive for: Normal Inspection. Negative for: L CVA Tenderness, R CVA Tenderness Neurologic/Psych: Positive for: Alert, Oriented (x3) - Laboratory Results Result Diagrams: 10/31/17 11:40 10/31/17 11:40 - ECG O2 Sat by Pulse Oximetry: 98 - Progress ED Course And Treament: Labs, pepcid 40mg IV, zofran 4mg IV, IV NS bolus x 1 ordered. Pt. kept NPO. 1220 On re-evaluation, pt. reports continued pain. WBC 11.2. CT abd/pelvis w/ IV contrast ordered. Additional IV NS bolus x [address] abd/pelvis w/ IV contrast: Short segment circumferential mural thickening in the distal descending colon in the left lower quadrant is nonspecific and could represent nonspecific infectious/ inflammatory colitis however underlying neoplasm cannot be excluded. Follow-up CT scan after medical management is recommended to ensure complete resolution. Alternatively, correlation with colonoscopy may be performed if clinically indicated. No other significant interval change. Results d/w patient in detail. Informed that she will need to f/u with a environmental marketing representative and that she should inform her PMD, Dr. Coello about CT findings. Also told that she may require a colonoscopy. All questions answered. Pt. offered IV cipro/flagyl but refused. Prefers to take medications orally as she her pain has completely resolved. Abd soft and non-tender. Disposition - Clinical Impression Clinical Impression: Colitis, UTI (urinary tract infection) - Patient ED Disposition Is Patient to be Admitted: No - Disposition Referrals: [facility] [Outside] Fela Bustamante MD [Medical Doctor] - Disposition: Routine/Home Disposition Time: 14:17 Condition: IMPROVED Additional Instructions: FOLLOW UP WITH DR. COELLO OR DR. BUSTAMANTE (HAND STONER) FOR FURTHER EVALUATION WITHOUT FAIL REGARDING POSSIBILITY OF COLONOSCOPY OVIDIO JONES, thank you for letting us take care of you today. Your provider was Edmar Chapa III, DO and you were treated for ABD PAIN. The emergency medical care you received today was directed at your acute symptoms. If you were prescribed any medication, please fill it and take as directed. It may take several days for your symptoms to resolve. Return to the Emergency Department if your symptoms worsen, do not improve, or if you have any other problems. Please contact your doctor or call one of the physicians/clinics you have been referred to that are listed on the Patient Visit Information form that is included in your discharge packet. Bring any paperwork you were given at discharge with you along with any medications you are taking to your follow up visit. Our treatment cannot replace ongoing medical care by a primary care provider outside of the emergency department. Thank you for allowing the [facility] team to be part of your care today. If you had an X-Ray or CT scan: A Radiologist will review the ED reading if any change in treatment is needed we will contact you. If you had a blood, urine, or wound culture: It will take several days for the results, if any change in treatment is needed we will contact you. If you had an STI test: It will take 48 hours for the results. Please call after 1 week if you have not heard back. Prescriptions: Ciprofloxacin [Cipro] 500 mg PO BID #14 tab Dicyclomine [Bentyl] 20 mg PO TID PRN #15 tab PRN Reason: abdominal pain metroNIDAZOLE [Flagyl] 500 mg PO TID #21 tab Ondansetron ODT [Zofran ODT] 4 mg PO TID #20 odt Instructions: Diarrhea in Adolescents and Adults, Urinary Tract Infection, Adult (DC) Forms: [id number] (Kyrgyz) Print Language: SRI LANKAN
[2017-10-31 13:17] LABS: SQUAMOUS EPITHIAL 7 /hpf (0-5); URINE BACTERIA RARE (<OCC); URINE BILIRUBIN NEGATIVE (NEGATIVE); URINE BLOOD NEGATIVE (NEGATIVE); URINE CLARITY CLOUDY (Clear); URINE COLOR YELLOW (YELLOW); URINE GLUCOSE (UA) NEG (Normal); URINE LEUKOCYTE ESTERASE MOD Leu/uL (Negative); URINE PROTEIN 30 mg/dL (NEGATIVE); URINE UROBILINOGEN 0.2-1.0 mg/dL (0.2-1.0)
--- NOTE | 2017-10-31 14:18 | CT ---
Date of service: 10/31/2017 PROCEDURE: CT Abdomen and Pelvis with contrast HISTORY: Abdominal pain, diarrhea, leukocytosis COMPARISON: 01/16/2017. TECHNIQUE: CT scan of the abdomen and pelvis was performed after administration of intravenous contrast. Oral contrast was not administered. Coronal and sagittal reformatted images were obtained. Contrast dose: 95 cc Omnipaque 300 Radiation dose: Total exam DLP = 806.43 mGy-cm. This CT exam was performed using one or more of the following dose reduction techniques: Automated exposure control, adjustment of the mA and/or kV according to patient size, and/or use of iterative reconstruction technique. FINDINGS: LOWER THORAX: There is dependent atelectasis in the lung bases. LIVER: Fatty liver. No gross lesion or ductal dilatation. GALLBLADDER AND BILE DUCTS: No calcified gallstones. PANCREAS: Normal in size with homogeneous enhancement. No gross lesion or ductal dilatation. SPLEEN: Normal in size and appearance. ADRENALS: Mild adrenal gland thickening and stable small adenoma in the right adrenal gland. KIDNEYS AND URETERS: Normal in size with homogeneous enhancement. No hydronephrosis. No solid mass. VASCULATURE: No aortic aneurysm. BOWEL: There is fecalization of small bowel contents. There is short segment circumferential mural thickening in the distal descending colon in the left lower quadrant. No evidence of bowel dilatation or obstruction. APPENDIX: Normal appendix. PERITONEUM: Unremarkable. No free fluid. No free air. LYMPH NODES: Unremarkable. No enlarged lymph nodes. BLADDER: Partially decompressed. REPRODUCTIVE: The uterus is normal in size. BONES: No acute fracture. OTHER FINDINGS: Small infraumbilical fat containing ventral hernia. IMPRESSION: Short segment circumferential mural thickening in the distal descending colon in the left lower quadrant is nonspecific and could represent nonspecific infectious/ inflammatory colitis however underlying neoplasm cannot be excluded. Follow-up CT scan after medical management is recommended to ensure complete resolution. Alternatively, correlation with colonoscopy may be performed if clinically indicated. No other significant interval change.
[2017-10-31 15:17] VITALS: BP 143/65; PULSE 78; TEMP 98.3
--- NOTE | 2017-10-31 21:05 | CARD ---
APPROVED REPORT Date of service: 10/31/2017 <Conclusion> Normal sinus rhythm Normal ECG
== END 2017-10-31 15:18 | disposition home or self-care (01) ==
LOC: H.ER 09:51
DX: K52.9 Noninfective gastroenteritis and colitis, unspecified (principal); N39.0 Urinary tract infection, site not specified; E11.9 Type 2 diabetes mellitus without complications; Z79.84 Long term (current) use of oral hypoglycemic drugs; E78.00 Pure hypercholesterolemia, unspecified; I10 Essential (primary) hypertension
CPT/HCPCS: 74177; 80053; 81003; 81025; 83690; 85025; 87086; 93005; 96361; 96374; 96375; 99284; J2405; J7030; Q9967

== ENCOUNTER 2018-05-21 10:13 | Emergency (ER) | payer OTHER ==
[2018-05-21 10:13] VITALS: BMI 35.2
--- NOTE | 2018-05-21 11:43 | ED PDOC ---
History of Present Illness History of Present Illness: 48 year old female with a past medical history of diabetes, hypertension, and hypercholesterolemia, who is presenting to the ED for evaluation of cough, sore throat, and headache ongoing for 4 days. Patient reports a productive cough with green phlegm and adds that she has nasal congestion. She denies any abdominal pain, nausea, vomiting, diarrhea, or fevers. PMD: Brenda Sorenson HPI: Influenza Time Seen by Provider: 05/21/18 10:51 Chief Complaint: Cough, Cold, Congestion Chief Complaint (Provider): Cough, Cold, Congestion History Per: Patient Exam Limitations: no limitations Onset/Duration Of Symptoms: Days Symptoms include: headache, sore throat, cough, nasal congestion. denies: feve r, vomiting, diarrhea Past Medical History Reviewed: Historical Data, Nursing Documentation, Vital Signs Vital Signs: Last Vital Signs Temp 100.3 F H 05/21/18 10:25 Pulse 117 H 05/21/18 10:25 Resp 16 05/21/18 10:25 BP 143/76 05/21/18 10:25 Pulse Ox 96 05/21/18 10:25 - Medical History PMH: Arthritis (Degenerative arthritis), Diabetes, HTN, Hypercholesterolemia Denies: Asthma (denies), Chronic Kidney Disease - Surgical History Surgical History: (x 1) - Family History Family History: States: Unknown Family Hx - Social History Current smoker - smoking cessation education provided: No Alcohol: None Drugs: Denies - Immunization History Hx Tetanus Toxoid Vaccination: No Hx Influenza Vaccination: No Hx Pneumococcal Vaccination: No - Home Medications Home Medications: Ambulatory Orders Medication Instructions Recorded Amoxicillin/Clavulanate [Augmentin 1 tab PO BID #14 tab 04/29/16 875 MG-125 MG] Htn Pill 1 tab PO BID 04/29/16 Ibuprofen [Motrin] 600 mg PO Q6 #20 tab 04/29/16 metFORMIN [glucOPHAGE] 1 tab PO BID 04/29/16 Naproxen [Naprosyn] 500 mg PO BID PRN #15 tablet 07/28/16 Nitrofurantoin Macrocrystals 100 mg PO BID #13 cap 07/28/16 [Macrobid] Naproxen 500 mg PO Q12H PRN #20 ect 09/27/16 Ibuprofen [Motrin Tab] 600 mg PO Q6 PRN #12 tab 11/17/16 Clindamycin [Cleocin] 300 mg PO QID 7 Days cap 12/09/16 Ibuprofen [Motrin] 600 mg PO TID 7 Days tab 12/09/16 Ciprofloxacin [Cipro] 500 mg PO BID #14 tab 01/16/17 Ibuprofen [Motrin Tab] 600 mg PO Q6 PRN #15 tab 01/16/17 Ondansetron ODT [Zofran ODT] 4 mg PO Q8 PRN #12 odt 05/27/17 Ibuprofen [Motrin] 600 mg PO Q8 PRN #21 tab 06/24/17 Cyclobenzaprine [Cyclobenzaprine 10 mg PO TID PRN #15 tab 07/08/17 HCl] Naproxen [Naprosyn] 500 mg PO BID PRN #15 tablet 07/08/17 Ciprofloxacin [Cipro] 500 mg PO BID #14 tab 10/31/17 Dicyclomine [Bentyl] 20 mg PO TID PRN #15 tab 10/31/17 Ondansetron ODT [Zofran ODT] 4 mg PO TID #20 odt 10/31/17 metroNIDAZOLE [Flagyl] 500 mg PO TID #21 tab 10/31/17 Azithromycin [Zithromax] 250 mg PO DAILY #4 tab 05/21/18 Famotidine [Pepcid] 20 mg PO Q12 #14 tab 05/25/18 Ondansetron ODT [Zofran ODT] 4 mg PO Q6 PRN #8 odt 05/25/18 - Allergies Allergies/Adverse Reactions: Allergies Allergy/AdvReac Type Severity Reaction Status Date / Time No Known Allergies Allergy Verified 05/24/18 22:34 Review of Systems ROS Statement: Except As Marked, All Systems Reviewed And Found Negative Constitutional: Negative for: Fever ENT: Positive for: Throat Pain Respiratory: Positive for: Cough, Sputum Gastrointestinal: Negative for: Nausea, Vomiting, Abdominal Pain, Diarrhea Neurological: Positive for: Headache Physical Exam - Reviewed Nursing Documentation Reviewed: Yes Vital Signs Reviewed: Yes - Physical Exam Appears: Positive for: Non-toxic, No Acute Distress Head Exam: Positive for: ATRAUMATIC, NORMAL INSPECTION, NORMOCEPHALIC Skin: Positive for: Normal Color, Warm, DRY Eye Exam: Positive for: EOMI, Normal appearance, PERRL ENT: Positive for: Nasal Congestion Cardiovascular/Chest: Positive for: Regular Rate, Rhythm. Negative for: Murmur Respiratory: Positive for: Normal Breath Sounds. Negative for: Respiratory Distress Gastrointestinal/Abdominal: Positive for: Normal Exam, Soft. Negative for: Tenderness Extremity: Positive for: Normal ROM. Negative for: Deformity, Swelling Neurological/Psych: Positive for: Awake, Alert, Normal Tone, Oriented. Negative for: Motor/Sensory Deficits Medical Decision Making Medical Decision Making: Time: 11:44 Plan: --VBG --CMP --CBC --CXR --Tylenol 650 mg PO --Blood Culture --Glucose, Blood, POC --Rapid Strep Accession No. : [id number] Patient Name / ID : KAREN NOLAN / [id number] Exam Date : 05/21/2018 12:00:40 ( Approved ) Study Comment : Sex / Age : F / 48Y Creator : Rahul Ch MD Dictator : Rahul Ch MD Location Man : [employer] Inspector : Rahul Ch MD Approver2 : Report Date : 05/21/2018 13:51:16 My Comment : This report is currently processing and HAS NOT BEEN OFFICIALLY SIGNED BY THE PHYSICIAN - ESTIMATED TIME OF APPROVAL IS 05/21/2018 13:56. Date of service: 05/21/2018 HISTORY: Cough COMPARISON: 08/28/2013. TECHNIQUE: Chest PA and lateral views FINDINGS: LUNGS: No active pulmonary disease. PLEURA: No significant pleural effusion identified. No pneumothorax apparent. CARDIOVASCULAR: No aortic atherosclerotic calcification present. Normal cardiac size. No pulmonary vascular congestion. OSSEOUS STRUCTURES: No significant abnormalities. VISUALIZED UPPER ABDOMEN: Normal. OTHER FINDINGS: None. IMPRESSION: No active disease. No significant interval change compared to the prior examination(s). Scribe Attestation: Documented by Jazzmine Smith, acting as a scribe for Asha Solano MD. Provider Scribe Attestation: All medical record entries made by the Scribe were at my direction and personally dictated by me. I have reviewed the chart and agree that the record accurately reflects my personal performance of the history, physical exam, medical decision making, and the department course for this patient. I have also personally directed, reviewed, and agree with the discharge instructions and disposition. - Laboratory Results Result Diagrams: 05/21/18 12:12 05/21/18 13:10 - ECG O2 Sat by Pulse Oximetry: 96 Disposition - Clinical Impression Clinical Impression: Flu-like symptoms - Disposition Referrals: Brenda Sorenson MD [Family Provider] - Disposition: Routine/Home Disposition Time: 17:47 Condition: IMPROVED Prescriptions: Azithromycin [Zithromax] 250 mg PO DAILY #4 tab Instructions: Viral Syndrome (DC) Forms: [employer] (Greek), [facility] ED School/Work Excuse
[2018-05-21 12:23] LABS: VENOUS BLOOD GAS BASE EXCESS 7.3 mmol/L (0.0-2.0); VENOUS BLOOD GAS PCO2 48 mmHg (40-60); VENOUS BLOOD GAS PO2 34 mm/Hg (30-55); VENOUS BLOOD PH 7.44 (7.32-7.43)
[2018-05-21 12:33] LABS: BASO # 0.1 K/uL (0.0-0.2); BASO % 0.7 % (0.0-2.0); EOS % 0.6 % (0.0-4.0); HEMOGLOBIN 12.1 g/dL (12.0-16.0); LYMPH # 1.3 K/uL (1.0-4.3); LYMPH % 16.4 % (20.0-40.0); MEAN CELL VOLUME 87.2 fl (81.0-99.0); MEAN CORPUSCULAR HEMOGLOBIN 28.3 pg (27.0-31.0); MEAN CORPUSCULAR HGB CONC 32.4 g/dL (33.0-37.0); MEAN PLATELET VOLUME 8.7 fl (7.2-11.7); MONO # 1.2 K/uL (0.0-0.8); MONO % 14.3 % (0.0-10.0); NEUT # 5.5 K/uL (1.8-7.0); NRBC % 0.1 % (0.0-0.0); RBC 4.28 Mil/uL (3.80-5.20); RED CELL DISTRIBUTION WIDTH 15.9 % (11.5-14.5); WHITE BLOOD COUNT 8.1 K/uL (4.8-10.8)
[2018-05-21 13:50] LABS: ALB/GLOB RATIO 1.2 (1.0-2.1); ALBUMIN 4.1 g/dL (3.5-5.0); ALT/SGPT 28 U/L (9-52); AST/SGOT 21 U/L (14-36); BLOOD UREA NITROGEN 11 mg/dl (7-17); CALCIUM 9.5 mg/dL (8.4-10.2); GFR NON-AFRICAN AMERICAN > 60
[2018-05-21] MEDS ORDERED: Potassium Chloride 20 mEq ER Tab PO STA (13:51)
--- NOTE | 2018-05-21 13:54 | RAD ---
Date of service: 05/21/2018 HISTORY: Cough COMPARISON: 08/28/2013. TECHNIQUE: Chest PA and lateral views FINDINGS: LUNGS: No active pulmonary disease. PLEURA: No significant pleural effusion identified. No pneumothorax apparent. CARDIOVASCULAR: No aortic atherosclerotic calcification present. Normal cardiac size. No pulmonary vascular congestion. OSSEOUS STRUCTURES: No significant abnormalities. VISUALIZED UPPER ABDOMEN: Normal. OTHER FINDINGS: None. IMPRESSION: No active disease. No significant interval change compared to the prior examination(s).
[2018-05-21] MEDS ORDERED: Potassium Chloride 20 mEq ER Tab PO ONE (15:07)
[2018-05-21 18:37] VITALS: TEMP 102.7
[2018-05-21 18:40] VITALS: BP 137/76; PULSE 102; RESP 18
[2018-05-25 09:53] VITALS: O2SAT 96
== END 2018-05-21 18:38 | disposition home or self-care (01) ==
LOC: H.ER 10:13
DX: J11.1 Influenza due to unidentified influenza virus with other respiratory manifestations (principal); E11.9 Type 2 diabetes mellitus without complications; E78.00 Pure hypercholesterolemia, unspecified; I10 Essential (primary) hypertension; Z79.84 Long term (current) use of oral hypoglycemic drugs

== ENCOUNTER 2018-05-24 22:24 | Emergency (ER) | payer OTHER ==
[2018-05-24 22:24] VITALS: BMI 35.2
[2018-05-24 22:36] VITALS: RESP 16
[2018-05-24] MEDS ORDERED: Sodium Chloride 0.9% 1,000 ML IV STA (23:45)
[2018-05-25 00:19] LABS: BASO # 0.1 K/uL (0.0-0.2); BASO % 0.9 % (0.0-2.0); EOS % 0.5 % (0.0-4.0); HEMOGLOBIN 12.3 g/dL (12.0-16.0); LYMPH # 2.8 K/uL (1.0-4.3); LYMPH % 33.7 % (20.0-40.0); MEAN CELL VOLUME 86.8 fl (81.0-99.0); MEAN CORPUSCULAR HEMOGLOBIN 28.9 pg (27.0-31.0); MEAN CORPUSCULAR HGB CONC 33.3 g/dL (33.0-37.0); MEAN PLATELET VOLUME 8.6 fl (7.2-11.7); MONO # 0.8 K/uL (0.0-0.8); MONO % 9.1 % (0.0-10.0); NEUT # 4.7 K/uL (1.8-7.0); NEUT % 55.8 % (50.0-75.0); NRBC % 0.1 % (0.0-0.0); RBC 4.25 Mil/uL (3.80-5.20); RED CELL DISTRIBUTION WIDTH 15.7 % (11.5-14.5); WHITE BLOOD COUNT 8.4 K/uL (4.8-10.8)
[2018-05-25 00:29] LABS: ALB/GLOB RATIO 1.2 (1.0-2.1); ALBUMIN 4.3 g/dL (3.5-5.0); ALT/SGPT 31 U/L (9-52); AST/SGOT 28 U/L (14-36); BLOOD UREA NITROGEN 16 mg/dl (7-17); GFR NON-AFRICAN AMERICAN > 60; LIPASE 241 U/L (23-300)
--- NOTE | 2018-05-25 01:39 | ED PDOC ---
HPI:Nausea, Vomiting, Diarrhea Time Seen by Provider: 05/24/18 23:45 Chief Complaint (Nursing): Abdominal Pain Chief Complaint (Provider): nausea/vomiting History Per: Patient History/Exam Limitations: no limitations Onset/Duration Of Symptoms: Days (4) Current Symptoms Are (Timing): Still Present Severity: Mild Pain Scale Rating Of: 3 Quality Of Discomfort: Dull Associated Symptoms: Nausea, Vomiting Alleviating Factors: None Last Bowel Movement: Today Additional Complaint(s): Patient is a 48 year AA female who presets with epigastric/abdominal pain and nausea/vomiting. She reports 4 episodes of nonbloody/nonbilious vomiting. She was seen for URI 4 days ago and given RX for antibiotic. She denies fever, CP, diarrhea. Patienty asking for food from provider. Past Medical History Vital Signs: Last Vital Signs Temp 98.7 F 05/24/18 22:34 Pulse 84 05/24/18 22:34 Resp 16 05/24/18 22:34 BP 120/72 05/24/18 22:34 Pulse Ox 97 05/24/18 22:34 - Medical History PMH: Arthritis (Degenerative arthritis), Diabetes, HTN, Hypercholesterolemia Denies: Asthma (denies), Chronic Kidney Disease - Surgical History Surgical History: (x 1) - Family History Family History: States: Unknown Family Hx - Immunization History Hx Tetanus Toxoid Vaccination: No Hx Influenza Vaccination: No Hx Pneumococcal Vaccination: No - Home Medications Home Medications: Ambulatory Orders Medication Instructions Recorded Amoxicillin/Clavulanate [Augmentin 1 tab PO BID #14 tab 04/29/16 875 MG-125 MG] Htn Pill 1 tab PO BID 04/29/16 Ibuprofen [Motrin] 600 mg PO Q6 #20 tab 04/29/16 metFORMIN [glucOPHAGE] 1 tab PO BID 04/29/16 Naproxen [Naprosyn] 500 mg PO BID PRN #15 tablet 07/28/16 Nitrofurantoin Macrocrystals 100 mg PO BID #13 cap 07/28/16 [Macrobid] Naproxen 500 mg PO Q12H PRN #20 ect 09/27/16 Ibuprofen [Motrin Tab] 600 mg PO Q6 PRN #12 tab 11/17/16 Clindamycin [Cleocin] 300 mg PO QID 7 Days cap 12/09/16 Ibuprofen [Motrin] 600 mg PO TID 7 Days tab 12/09/16 Ciprofloxacin [Cipro] 500 mg PO BID #14 tab 01/16/17 Ibuprofen [Motrin Tab] 600 mg PO Q6 PRN #15 tab 01/16/17 Ondansetron ODT [Zofran ODT] 4 mg PO Q8 PRN #12 odt 05/27/17 Ibuprofen [Motrin] 600 mg PO Q8 PRN #21 tab 06/24/17 Cyclobenzaprine [Cyclobenzaprine 10 mg PO TID PRN #15 tab 07/08/17 HCl] Naproxen [Naprosyn] 500 mg PO BID PRN #15 tablet 07/08/17 Ciprofloxacin [Cipro] 500 mg PO BID #14 tab 10/31/17 Dicyclomine [Bentyl] 20 mg PO TID PRN #15 tab 10/31/17 Ondansetron ODT [Zofran ODT] 4 mg PO TID #20 odt 10/31/17 metroNIDAZOLE [Flagyl] 500 mg PO TID #21 tab 10/31/17 Azithromycin [Zithromax] 250 mg PO DAILY #4 tab 05/21/18 Famotidine [Pepcid] 20 mg PO Q12 #14 tab 05/25/18 Ondansetron ODT [Zofran ODT] 4 mg PO Q6 PRN #8 odt 05/25/18 - Allergies Allergies/Adverse Reactions: Allergies Allergy/AdvReac Type Severity Reaction Status Date / Time No Known Allergies Allergy Verified 05/24/18 22:34 Review of Systems Gastrointestinal: Positive for: Nausea, Vomiting, Abdominal Pain Physical Exam - Reviewed Nursing Documentation Reviewed: Yes Vital Signs Reviewed: Yes - Physical Exam Appears: Positive for: Well, Non-toxic, No Acute Distress Head Exam: Positive for: ATRAUMATIC, NORMOCEPHALIC Skin: Positive for: Normal Color, Warm, Dry Eye Exam: Positive for: Normal appearance, EOMI, PERRL ENT: Positive for: Normal ENT Inspection Neck: Positive for: Normal, Painless ROM, Supple Cardiovascular/Chest: Positive for: Regular Rate, Rhythm. Negative for: Murmur Respiratory: Positive for: Normal Breath Sounds. Negative for: Rales, Rhonchi, Wheezing Gastrointestinal/Abdominal: Positive for: Bowel Sounds, Soft, Tenderness ((+)mi ld epigastric tenderness) Extremity: Positive for: Normal ROM. Negative for: Tenderness, Pedal Edema Neurological/Psych: Positive for: Awake, Alert - Laboratory Results Result Diagrams: 05/24/18 23:59 05/24/18 23:59 Lab Results: Total Bilirubin 0.4 mg/dl (0.2-1.3) 05/24/18 23:59 AST 28 U/L (14-36) 05/24/18 23:59 ALT 31 U/L (9-52) 05/24/18 23:59 Alkaline Phosphatase 75 U/L (38-126) 05/24/18 23:59 Total Protein 7.9 G/DL (6.3-8.2) 05/24/18 23:59 Albumin 4.3 g/dL (3.5-5.0) 05/24/18 23:59 Globulin 3.5 gm/dL (2.2-3.9) 05/24/18 23:59 Albumin/Globulin Ratio 1.2 (1.0-2.1) 05/24/18 23:59 Lipase 241 U/L (23-300) 05/24/18 23:59 - ECG O2 Sat by Pulse Oximetry: 97 Medical Decision Making Medical Decision Makin yo female with N/V and epigastric pain Labs and IV Pepcid/zofran/fluids ordered Labs reviewed show no clinically sig abnormalities Patients stable for discharge home Disposition - Clinical Impression Clinical Impression: Gastritis - Disposition Disposition: Routine/Home Disposition Time: 02:00 Condition: STABLE Prescriptions: Famotidine [Pepcid] 20 mg PO Q12 #14 tab Ondansetron ODT [Zofran ODT] 4 mg PO Q6 PRN #8 odt PRN Reason: Nausea/Vomiting Instructions: Gastritis Forms: [facility] (Amharic), [facility] ED School/Work Excuse
[2018-05-25 02:13] VITALS: BP 130/67; PULSE 86; TEMP 98.2
--- NOTE | 2018-05-25 20:51 | CARD ---
APPROVED REPORT Date of service: 05/25/2018 EKG Measurement Heart [id number] <Conclusion> Normal sinus rhythm Cannot rule out Anterior infarct, age undetermined- questionable lead placement Abnormal ECG
[2018-05-25 21:07] VITALS: O2SAT 97
== END 2018-05-25 02:14 | disposition home or self-care (01) ==
LOC: H.ER 22:24
DX: K29.70 Gastritis, unspecified, without bleeding (principal); E11.9 Type 2 diabetes mellitus without complications; E78.00 Pure hypercholesterolemia, unspecified; I10 Essential (primary) hypertension; Z79.84 Long term (current) use of oral hypoglycemic drugs
CPT/HCPCS: 80053; 83690; 85025; 93005; 96360; 99283; J2405; J7030